=== PATIENT | female | born 1990 | race Caucasian/White ===

== ENCOUNTER 2018-05-14 19:52 | Outpatient (CLI) | payer MEDICAID ==
[2018-05-15] MEDS: ACETAMINOPHEN 325 MG TAB PO (00:01)
[2018-05-15] MEDS: OSELTAMIVIR 75 MG CAP PO (00:17)
== END 2018-05-15 02:30 | disposition home or self-care (01) ==
LOC: OBT 19:52 → L-D 19:58
DX: O98.513 Other viral diseases complicating pregnancy, third trimester (principal); R50.9 Fever, unspecified; Z3A.31 31 weeks gestation of pregnancy
CPT/HCPCS: 76815

== ENCOUNTER 2018-06-29 05:48 | Inpatient (IN) | payer MEDICAID ==
[2018-06-29] MEDS ORDERED: METHYLERGONOVINE 0.2 MG INJ IM ×2 (06:30→10:00)
[2018-06-29] MEDS ORDERED: LIDOCAINE 1% (MPF) 30 ML INJ INJ (06:30)
[2018-06-29] MEDS ORDERED: OXYTOCIN 30 UNITS/LR 500 ML IV ×2 (06:30→10:00)
[2018-06-29] MEDS ORDERED: MISOPROSTOL 200 MCG TAB PR ×2 (06:30→10:00)
[2018-06-29] MEDS ORDERED: CARBOPROST 250 MCG INJ IM ×2 (06:30→10:00)
[2018-06-29] MEDS ORDERED: BUTORPHANOL 1 MG INJ IV (06:30)
[2018-06-29] MEDS ORDERED: FENTAnyl 50 MCG/ML VIAL IV (06:30)
[2018-06-29] MEDS ORDERED: BUTORPHANOL 2 MG INJ IV (06:30)
[2018-06-29] MEDS ORDERED: ACETAMINOPHEN/CODEINE #3 TAB PO (06:30)
[2018-06-29] MEDS ORDERED: IBUPROFEN 600 MG TAB PO (06:30)
[2018-06-29] MEDS: LACTATED RINGER'S 1,000 ML IV* ×4 (06:52→17:53)
[2018-06-29] MEDS: AMPICILLIN 2 GM/NS (PMX) 100 ML IV (06:59)
[2018-06-29 07:05] LABS: ADD MAN DIFF? NO
[2018-06-29 07:15] LABS: WHITE BLOOD COUNT 7.5 10^3/ul (4.8-10.8)
[2018-06-29 07:15] LABS: ABNORMAL IP MESSAGE 1; BASOPHILS % 0.3 % (0.0-2.0); EOSINOPHILS # 0.1 10^3/ul (0.0-0.5); EOSINOPHILS % 0.9 % (0.0-7.0); HEMATOCRIT 26.2 % (37.0-47.0); HEMOGLOBIN 7.7 g/dl (12.0-16.0); LYMPHOCYTES # 2.1 10^3/ul (0.8-2.9); MEAN CORPUSCULAR HEMOGLOBIN 21.4 pg (29.0-33.0); MEAN CORPUSCULAR HGB CONC 29.4 g/dl (32.0-37.0); MONOCYTE # 0.7 10^3/ul (0.3-0.9); MONOCYTES % 9.5 % (0.0-11.0); NEUTROPHIL # 4.6 10^3/ul (1.6-7.5); NEUTROPHILS % 60.9 % (39.0-77.0); PLATELET COUNT 219 10^3/UL (140-415); RED BLOOD COUNT 3.59 10^6/ul (4.20-5.40); RED CELL DISTRIBUTION WIDTH 18.3 % (11.5-14.5)
[2018-06-29 07:20] LABS: POSITIVE DIFF @See below
[2018-06-29 07:35] LABS: INR 0.91; PROTIME 12.3 Sec (11.9-14.9)
[2018-06-29 07:36] LABS: PARTIAL THROMBOPLASTIN TIME 32.6 Sec (23.0-35.0)
[2018-06-29] MEDS ORDERED: FENTAnyl 2MCG/ML-ROPIV 0.2% 100 ML (07:53)
[2018-06-29] MEDS ORDERED: ONDANSETRON 4 MG INJ IV ×2 (08:00→10:00)
[2018-06-29] MEDS ORDERED: DIPHENHYDRAMINE 50 MG INJ IV ×2 (08:00→10:00)
[2018-06-29] MEDS ORDERED: NALOXONE (0.4 MG/ML) INJ IV (08:00)
[2018-06-29] MEDS: FENTAnyl 2MCG/ML-ROPIV 0.2% 100 ML BAG EPI (08:39)
[2018-06-29 08:41] LABS: HEPATITIS B SURFACE ANTIGEN NEGATIVE (NEGATIVE)
[2018-06-29 08:51] LABS: HIV 1&2 ANTIBODY NEGATIVE (NEGATIVE)
[2018-06-29] MEDS: OXYTOCIN 30 UNITS/LR 500 ML IV ×2 (09:18→09:48)
[2018-06-29] MEDS ORDERED: DEXTROSE 5%-LR 1,000 ML IV (09:53)
[2018-06-29] MEDS ORDERED: ZOLPIDEM 5 MG TAB PO (10:00)
[2018-06-29] MEDS ORDERED: DIBUCAINE 1% 30 GM OINT PR (10:00)
[2018-06-29] MEDS ORDERED: HYDROCODONE/APAP (5/325) TAB PO (10:00)
[2018-06-29] MEDS ORDERED: ACETAMINOPHEN 325 MG TAB PO (10:00)
[2018-06-29] MEDS ORDERED: AMPICILLIN 1 GM/NS (PMX) 50 ML IV (10:30)
[2018-06-29] MEDS: IBUPROFEN 600 MG TAB PO ×2 (12:05→18:56)
[2018-06-29] MEDS: LANOLIN 7 GM TUBE TOP (12:08)
[2018-06-29] MEDS: BENZOCAINE 20% 56 ML SPRAY TOP (12:08)
[2018-06-29] MEDS: WITCH HAZEL/GLYCERIN PAD PR (12:09)
[2018-06-29 16:52] LABS: RAPID PLASMA REAGIN NONREACTIVE (NR)
[2018-06-29] MEDS: SENNA/DOCUSATE NA (8.6MG/50MG) TAB PO (21:37)
[2018-06-30] MEDS: IBUPROFEN 600 MG TAB PO ×4 (00:12→18:09)
[2018-06-30 07:42] LABS: ADD MAN DIFF? NO
[2018-06-30 07:51] LABS: WHITE BLOOD COUNT 7.9 10^3/ul (4.8-10.8)
[2018-06-30 07:51] LABS: ABNORMAL IP MESSAGE 1; BASOPHILS % 0.3 % (0.0-2.0); EOSINOPHILS # 0.1 10^3/ul (0.0-0.5); EOSINOPHILS % 1.1 % (0.0-7.0); HEMATOCRIT 23.5 % (37.0-47.0); LYMPHOCYTES # 2.3 10^3/ul (0.8-2.9); LYMPHOCYTES % 29.4 % (15.0-51.0); MEAN CORPUSCULAR HEMOGLOBIN 20.9 pg (29.0-33.0); MEAN CORPUSCULAR HGB CONC 28.5 g/dl (32.0-37.0); MEAN CORPUSCULAR VOLUME 73.2 fl (82.0-101.0); MEAN PLATELET VOLUME 12.3 fl (7.4-10.4); MONOCYTE # 0.8 10^3/ul (0.3-0.9); MONOCYTES % 9.6 % (0.0-11.0); NEUTROPHIL # 4.6 10^3/ul (1.6-7.5); NEUTROPHILS % 59.1 % (39.0-77.0); PLATELET COUNT 169 10^3/UL (140-415); RED BLOOD COUNT 3.21 10^6/ul (4.20-5.40); RED CELL DISTRIBUTION WIDTH 17.8 % (11.5-14.5)
[2018-06-30 08:07] LABS: POSITIVE DIFF @See below
[2018-06-30 08:29] LABS: HEMOGLOBIN 6.7 g/dl (12.0-16.0)
[2018-06-30 10:11] LABS: RUBELLA ANTIBODY - IGG 1.05 index
[2018-06-30 11:01] LABS: IRON 29 ug/dl (35-150)
[2018-06-30 11:10] LABS: % IRON SATURATION 5 % SAT (22-52); TOTAL IRON BINDING CAPACITY 558 ug/dl (241-421)
[2018-06-30 11:28] LABS: AMPHETAMINE/METHAMPHETAMINE Negative (NEGATIVE); BARBITURATES Negative (NEGATIVE); BENZODIAZEPINES Negative (NEGATIVE); CANNABINOIDS Negative (NEGATIVE); COCAINE Negative (NEGATIVE); OPIATES Negative (NEGATIVE)
[2018-06-30] MEDS: SOD FERRIC GLUC COMPLX 125 MG in SOD CHLORIDE 0.9% 100 ML IVPB (12:34)
[2018-06-30] MEDS: CYANOCOBALAMIN 1000 MCG INJ IM (12:35)
[2018-06-30 13:22] LABS: FERRITIN 4.4 ng/ml (6.2-137.0)
[2018-06-30] MEDS: INFLUENZA VIRUS VACCINE 0.5 ML (DISPENSING) IM* (17:27)
[2018-06-30] MEDS: SENNA/DOCUSATE NA (8.6MG/50MG) TAB PO (21:53)
[2018-07-01] MEDS: SOD FERRIC GLUC COMPLX 125 MG in SOD CHLORIDE 0.9% 100 ML IVPB ×2 (00:09→11:37)
[2018-07-01] MEDS: IBUPROFEN 600 MG TAB PO ×3 (06:00→11:36)
[2018-07-01] MEDS: MEASLES,MUMPS,RUBELLA VACCINE INJ SC* (09:00)
[2018-07-01 10:01] LABS: RUBELLA ANTIBODY - IGM <20.00 AU/mL
[2018-07-01] MEDS: DIPHTH/TET/ACEL PERTUSS (ADULT) 0.5 ML VIAL IM* (11:38)
== END 2018-07-01 18:07 | disposition home or self-care (01) | DRG 807 ==
LOC: OBT 05:48 → L-D 05:49 → OBT 06:23 → L-D 06:23 → PP1 11:13
PROVIDERS: Obstetrics & Gynecology Gynecology
PROC: 10E0XZZ Delivery of Products of Conception, External Approach (ICD-10-PCS; principal; 2018-06-29)
PROC: 0HQ9XZZ Repair Perineum Skin, External Approach (ICD-10-PCS; 2018-06-29)
PROC: 4A1HXCZ Monitoring of Products of Conception, Cardiac Rate, External Approach (ICD-10-PCS; 2018-06-29)
PROC: 3E0234Z Introduction of Serum, Toxoid and Vaccine into Muscle, Percutaneous Approach (ICD-10-PCS; 2018-06-30)
PROC: 3E0234Z Introduction of Serum, Toxoid and Vaccine into Muscle, Percutaneous Approach (ICD-10-PCS; 2018-07-01)
DX: O99.214 Obesity complicating childbirth (principal); Z37.0 Single live birth; E66.9 Obesity, unspecified; Z68.35 Body mass index [BMI] 35.0-35.9, adult; O69.81X0 Labor and delivery complicated by cord around neck, without compression, not applicable or unspecified; O70.0 First degree perineal laceration during delivery; O99.02 Anemia complicating childbirth; D64.9 Anemia, unspecified; Z3A.37 37 weeks gestation of pregnancy; Z23 Encounter for immunization
CPT/HCPCS: 62319; 80307; 82728; 83540; 85025; 85610; 85730; 86592; 86703; 86762; 86850; 86900; 86901; 87340; 90686; 90715